=== PATIENT | male | born 1985 | race Caucasian/White ===

== ENCOUNTER 2021-11-20 23:20 | Emergency (ER) | payer BC ==
[~2021-11-20] VITALS: Ht 172.7 cm; Wt 113.4 kg
[2021-11-21 02:36] VITALS: BP 151/87
[2021-11-21] MEDS ORDERED: IBUPROFEN 400 MG TABLET ONE (02:41)
[2021-11-21] MEDS ORDERED: IBUPROFEN 400 MG TABLET PO ONE (03:00)
== END 2021-11-21 03:52 | disposition home or self-care (01) ==
LOC: ER 23:27
DX: S93.492A Sprain of other ligament of left ankle, initial encounter (principal); Z60.2 Problems related to living alone; X50.1XXA Overexertion from prolonged static or awkward postures, initial encounter; Y93.01 Activity, walking, marching and hiking; Y92.89 Other specified places as the place of occurrence of the external cause; Y99.8 Other external cause status
CPT/HCPCS: 73610-TC